=== PATIENT | female | born 1975 | race Caucasian/White ===

== ENCOUNTER 2024-01-22 07:12 | Emergency (ER) | payer OTHER ==
[~2024-01-22] VITALS: Ht 157.5 cm; Wt 104.5 kg
[2024-01-22 07:19] VITALS: TEMP 98.1
[2024-01-22] MEDS ORDERED: LR 1,000 ML IV ONE (07:30)
[2024-01-22] MEDS ORDERED: Ondansetron 4 MG/2 ML VIAL IV ONE (07:30)
[2024-01-22 07:52] LABS: BASO # 0.1 K/mm3 (0.0-0.2); BASO % 0.3 % (0.0-2.0); GRAN # 16.9 K/mm3 (1.4-6.5); GRAN % 85.7 % (42.2-75.2); HEMATOCRIT 43.9 % (37.0-47.0); HEMOGLOBIN 15.1 g/dl (12.5-16.0); LYMPH # 1.8 K/mm3 (1.2-3.4); LYMPH % 9.2 % (20.0-51.0); MEAN CELL VOLUME 84 fl (80.0-100.0); MEAN CORPUSCULAR HEMOGLOBIN 29 pg (27-31); MEAN CORPUSCULAR HGB CONC 34 g/dl (33.0-37.0); MEAN PLATELET VOLUME 9.4 fl (7.4-10.4); MONO # 0.9 K/mm3 (0.1-0.6); MONO % 4.4 % (1.7-9.3); PLATELET COUNT 393 K/mm3 (130-400); REDCELL DISTRIBUTION WIDTH-CV 13.3 % (11.5-14.5)
[2024-01-22 07:58] LABS: PH 5.5 (5.0-8.5); URINE APPEARANCE CLOUDY (CLEAR/HAZY); URINE BLOOD 1+ (NEGATIVE); URINE COLOR YELLOW (YELLOW); URINE GLUCOSE NEGATIVE (NEGATIVE); URINE KETONE TRACE (NEGATIVE); URINE NITRATE POSITIVE (NEGATIVE); URINE PROTEIN(semi-quant) 1+ (NEGATIVE); URINE UROBILINOGEN 0.2 E.U/dL (0.2-1.0)
[2024-01-22] MEDS ORDERED: Morphine 4 MG/ML VIAL IV ONE ×2 (08:00→10:45)
[2024-01-22 08:02] LABS: COLLECTION METHOD CLEAN CATCH
[2024-01-22 08:12] LABS: ALBUMIN 4.1 gm/dL (3.5-5.0); BILIRUBIN,TOTAL 0.7 mg/dL (0.2-1.2); C-REACTIVE PROTEIN 15.19 mg/dL (0.00-0.50); CALCIUM 10.2 mg/dL (8.4-10.2); CREATININE, serum 0.72 mg/dL (0.57-1.11); POTASSIUM 3.7 mmol/L (3.5-4.5); TOTAL PROTEIN 7.7 gm/dL (6.2-8.1)
[2024-01-22] MEDS ORDERED: Lisinopril 20 MG,hydroCHLOROthiazide 12.5 MG PO ONE (08:15)
[2024-01-22] MEDS ORDERED: Iohexol 300 - 100 ML VIAL IV ONE (08:43)
[2024-01-22] MEDS ORDERED: cefTRIAXone 2 G in Water For Injection,Sterile 20 ML IV ONE (08:45)
[2024-01-22] MEDS ORDERED: NS 100 ML IV SCH (09:02)
[2024-01-22] MEDS ORDERED: DOXYCYCLINE 10100 MG PO (10:48)
[2024-01-22] MEDS ORDERED: CEFTIN 250250 MG/TAB PO (10:48)
[2024-01-22] MEDS ORDERED: NORCO 325 MG-51 TAB PO (10:48)
[2024-01-22] MEDS ORDERED: FLAGYL500 MG PO (10:48)
[2024-01-22 11:03] VITALS: BP 164/101; PULSE 104
== END 2024-01-22 11:06 | disposition home or self-care (01) ==
LOC: COL.ER 07:12
PROVIDERS: Family Medicine
DX: N39.0 Urinary tract infection, site not specified (principal); N73.9 Female pelvic inflammatory disease, unspecified
CPT/HCPCS: J0696; J2270; J2405; J7120; Q9967